=== PATIENT | male | born 1960 | race Caucasian/White ===

== ENCOUNTER 2016-07-18 15:02 | Inpatient (IN) | payer OTHER ==
[~2016-07-18] VITALS: Ht 170.2 cm; Wt 67.1 kg
[2016-07-18 15:20] VITALS: BP 131/75
--- NOTE | 2016-07-18 15:25 | NUR ---
PATIENT BIB AMBULANCE WITH C/O GENERALYZE WEAKNESS AND ABDOMINAL/ BACK PAIN, ASCITIS, PER PT.,PARACENTESIS DONE AT [facility] X[facility]. AGO.HX: ALCOHOLISM,ASCITIS; DENIES N/V/D; SKIN IS PINK/WARM/DRY; AAOX4 PLACE ON MONITOR; LUNGS CLEAR BL; HR EVEN AND REGULAR; PT DENIES ANY FEVER, CP, CP, OR COUGH AT THIS TIME; PATIENT STATES PAIN OF 10/10 AT THIS TIME; VSS; PATIENT POSITIONED FOR COMFORT; HOB ELEVATED; BEDRAILS UP X2; BED DOWN. ER MD MADE AWARE OF PT STATUS.
[2016-07-18] MEDS ORDERED: LORA-476 PO (15:36)
[2016-07-18] MEDS ORDERED: FURO-570 PO (15:36)
[2016-07-18 15:48] LABS: HEMATOCRIT 31.8 % (36-52); HEMOGLOBIN 9.8 g/dL (12.0-18.0); MEAN CORPUSCULAR HEMOGLOBIN 23 pg (27-31); MEAN CORPUSCULAR HGB CONC 31 g/dL (33-37); MEAN CORPUSCULAR VOLUME 74 fL (80-94); PLATELET COUNT (AUTO) 331 K/uL (140-450); RED BLOOD CELL COUNT(AUTO) 4.27 MIL/uL (4.20-6.10); RED CELL DISTRIBUTION WIDTH 20.2 % (11.6-13.7); WHITE BLOOD COUNT (AUTO) 6.9 K/uL (4.8-10.8)
[2016-07-18 15:50] LABS: ANION GAP 10.7 (8-16); CALCIUM 7.3 mg/dL (8.5-10.1); CARBON DIOXIDE 26.4 mmol/L (21-32); CREATININE 0.6 mg/dL (0.6-1.3); POTASSIUM 4.1 mmol/L (3.5-5.1)
[2016-07-18 15:55] LABS: INR 1.2 (0.8-1.2); PARTIAL THROMBOPLASTIN TIME 26.1 secs (22-35.6); PROTHROMBIN TIME 11.4 secs (10.8-13.4)
[2016-07-18] MEDS ORDERED: FUROSEMIDE 40 MG/4 ML VIAL IVP ONE (15:55)
[2016-07-18] MEDS ORDERED: MORPHINE SULFATE 4 MG/ML SYR IVP ONE ×2 (15:55→17:15)
[2016-07-18 15:56] LABS: ALBUMIN 2.1 g/dL (3.4-5.0); TOTAL BILIRUBIN 0.8 mg/dL (0.0-1.0); TOTAL PROTEIN, SERUM 6.7 g/dL (6.4-8.2)
[2016-07-18 16:17] LABS: BAND % (MANUAL) 1 % (0-8); EOSINOPHILS % (MANUAL) 2 % (0-4); HYPOCHROMASIA 1+; LYMPHOCYTES % (MANUAL) 16 % (20-46); METAMYELOCYTES % 1 % (0-0); MONOCYTES % (MANUAL) 7 % (5-12); NEUTROPHILS % (MANUAL) 73 (43-65); PLATELET ESTIMATE ADEQUATE
--- NOTE | 2016-07-18 17:01 | NUR ---
PT ASSISTED ON URINE SAMPLE, URINAL PROVIDED AT BEDSIDE EMPTIED 350 ML,
[2016-07-18] MEDS ORDERED: LACTULOSE 20 GM/30 ML UDC PO ONE (17:15)
[2016-07-18] MEDS ORDERED: ONDANSETRON 4 MG/2 ML VIAL IVP PRN (18:10)
--- NOTE | 2016-07-18 18:15 | NUR ---
URINE OUTPUT EMPTIED 750ML
[2016-07-18] MEDS ORDERED: SPIRONOLACTONE 25 MG TAB PO ONE (18:20)
--- NOTE | 2016-07-18 18:30 | NUR ---
Patient will be admitted to care of DR SERRA. Admited to TELE. Will go to room 109A. Belongings list completed. Report to BESSIE OTERO.
--- NOTE | 2016-07-18 18:40 | NUR ---
PT ARRIVED ON THE UNIT. HE WALKED FROM [facility] TO THE BED. PT IS SITTING AT SIDE OF BED. PT HAS SCRATCHES AND SCABS ON FACE. PT CLAIMS HE HAD A STROKE AND "WENT FACE FIRST" A COUPLE OF DAYS AGO. HE C/O OF NUMBNESS ON R HAND AND SOME WEAKNESS IN THE R LEG. PT HAS ASCITES. STOMACH IS VERY DISTENDED. PT CLAIMS HE HAD A PARACENTESIS 2 DAYS AGO AT [facility] HAD 9L DRAINED. PT IS ALERT ORIENTED X 4. V/S WITHIN NORMAL LIMITS. REQUESTED SOME BROTH AND JELLO.
[2016-07-18 18:45] VITALS: BP 128/92
[2016-07-18 18:46] LABS: MAGNESIUM 1.9 mg/dL (1.8-2.4); PHOSPHORUS 2.6 mg/dL (2.5-4.9)
[2016-07-18 19:05] LABS: FREE T4 (FREE THYROXINE) 1.27 ng/dL (0.76-1.46); THYROID STIMULATING HORMONE 1.33 uIU/mL (0.34-3.76)
--- NOTE | 2016-07-18 19:27 | NUR ---
ENDORSED PT TO THE AWNING FRAME MAKER NURSE. SHE WILL ADMIT PT. PT IS IN STABLE CONDITION.
--- NOTE | 2016-07-18 19:30 | NUR ---
RECEIVED REPORT ON PT FROM AM NURSE. AWAKE,ALERT AND ORIENTED X4. ON TELE MONITOR-ST. NO C/O ANY PAIN AT THIS TIME. WITH LARGE ABDOMEN, DX: ASCITES. WITH HL LT AC 320 ANS LT FA#20. BOTH PATENT. TO DO ADMITTING HISTORY/ ASSESSMENT. SPECIMEN FOR MRSA NARES COLLECTED. WILL SED TO LAB. CALL LIGHT PLACED WITHIN EASY REACH. INSTRUCTED TO HAVE BOTH SIDE RAILS UP . PLAN OF CARE DISCUSSED AND VERBALIZED UNDERSTANDING. WILL CONTINUE TO MONITOR.
[2016-07-18 20:30] LABS: APPEARANCE,URINE CLEAR (CLEAR); BILIRUBIN,URINE NEGATIVE (NEGATIVE); BLOOD, URINE NEGATIVE (NEGATIVE); COLOR,URINE YELLOW (YELLOW); LEUKOCYTE ESTERASE ,URINE NEGATIVE (NEGATIVE); NITRITE, URINE NEGATIVE (NEGATIVE); PROTEIN,URINE NEGATIVE (NEGATIVE); UGLUCOSE NEGATIVE (NEGATIVE); UROBILINOGEN,URINE 0.2 EU/dL (0.2 - 1)
[2016-07-18] MEDS ORDERED: CEFOTAXIME ONE (20:36)
[2016-07-18 20:38] LABS: BACTERIA,URINE RARE /HPF (None Seen); MUCUS,URINE 4+ /LPF (None Seen); RBC,URINE 0-3 /HPF (0-5); SQUAMOUS EPITHELIAL CELL,UR 0-3 /LPF (0-3 (FEW)); WBC,URINE 0-3 /HPF (0-5)
[2016-07-18 20:42] LABS: AMPHETAMINE, URINE POS. ng/ml (NEG <=1000); BARBITURATE, URINE NEG. ng/ml (NEG <=200); BENZODIAZEPINE, URINE NEG. ng/mL (NEG <=200); CANNABINOID, URINE NEG. ng/mL (NEG <=50); COCAINE, URINE NEG. ng/mL (NEG <=300); OPIATE, URINE NEG. ng/mL (NEG <=2000); PHENCYCLIDINE SCREEN,URINE NEG. ng/mL (NEG <=25)
--- NOTE | 2016-07-18 21:00 | NUR ---
PAGED DR. SERRA TO CLARIFY LASIX AND ALDACTONE ORDERS. DR. SALES WEIGHT LOSS PHYSICIAN. CALLED BACK. MADE AWARE .HE SAID HE'LL TAKE CARE.
[2016-07-18] MEDS: DEXTROSE 5% IV SCH (21:13)
[2016-07-18] MEDS: CEFOTAXIME IV SCH (21:13)
--- NOTE | 2016-07-18 21:30 | NUR ---
PT HAD SOME SANDWICH. TOLERATED WELL. NO VOMITING NOTED.
[2016-07-18 21:44] VITALS: BP 141/85
[2016-07-18] MEDS: MORPHINE SULFATE 2 MG/ML SYR IVP PRN (21:48)
[2016-07-19] VITALS: BP 140/80
--- NOTE | 2016-07-19 01:30 | NUR ---
STILL AWAKE. NO C/O ANY DISCOMFORT NOR PAIN NOTED. WILL CONTINUE TO MONITOR.
[2016-07-19 03:18] VITALS: BP 151/93
[2016-07-19] MEDS: MORPHINE SULFATE 2 MG/ML SYR IVP PRN ×2 (03:20→08:51)
--- NOTE | 2016-07-19 03:30 | NUR ---
SLEEPING WELL AT THIS TIME. NO S/S OF ANY DISCOMFORT NOTED.
--- NOTE | 2016-07-19 04:00 | NUR ---
APPLIED SCD MACHINE TO BLE.
[2016-07-19] MEDS ORDERED: CEFOTAXIME ONE (04:44)
[2016-07-19] MEDS: DEXTROSE 5% IV SCH ×3 (05:04→20:50)
[2016-07-19] MEDS: CEFOTAXIME IV SCH ×3 (05:04→20:50)
--- NOTE | 2016-07-19 06:30 | NUR ---
SLEEPING AT THIS TIME. NO S/S OF ANY DISCOMFORT NOTED.
[2016-07-19 06:50] LABS: HEMATOCRIT 30.4 % (36-52); HEMOGLOBIN 9.5 g/dL (12.0-18.0); MEAN CORPUSCULAR HEMOGLOBIN 23 pg (27-31); MEAN CORPUSCULAR HGB CONC 31 g/dL (33-37); MEAN CORPUSCULAR VOLUME 74 fL (80-94); PLATELET COUNT (AUTO) 286 K/uL (140-450); RED BLOOD CELL COUNT(AUTO) 4.09 MIL/uL (4.20-6.10); RED CELL DISTRIBUTION WIDTH 19.6 % (11.6-13.7); WHITE BLOOD COUNT (AUTO) 6.9 K/uL (4.8-10.8)
[2016-07-19 07:09] LABS: CALCIUM 7.2 mg/dL (8.5-10.1); CREATININE 0.8 mg/dL (0.6-1.3)
--- NOTE | 2016-07-19 07:20 | NUR ---
RECEIVED REPORT FROM NIGHT NURSE. PT IS AAOX4. ON ROOM AIR . LEFT FA 22G SALINE LOCK, LEFT AC 20G SALINE LOCK. SKIN INTACT OLD SCAB TO NOSE, ABDOMINAL DISTENTION, SCD NOTED.INITIAL ASSESSMENT COMPLETED. REVIEWED PLAN OF CARE WITH PT PT VERBALIZED UNDERSTANDING. ALL SAFETY/ FALL PRECAUTIONS MET. CALL LIGHT WITHIN REACH. WILL CONTINUE TO MONITOR.
--- NOTE | 2016-07-19 07:20 | NUR ---
ENDORSED PT IN STABLE CONDITION TO AM NURSE.
[2016-07-19 07:24] LABS: CHOL/HDL RATIO 3.4 (1-4.5); MAGNESIUM 1.6 mg/dL (1.8-2.4); PHOSPHORUS 3.3 mg/dL (2.5-4.9)
[2016-07-19 07:29] LABS: BAND % (MANUAL) 2 % (0-8); EOSINOPHILS % (MANUAL) 4 % (0-4); LYMPHOCYTES % (MANUAL) 8 % (20-46); MONOCYTES % (MANUAL) 11 % (5-12); NEUTROPHILS % (MANUAL) 75 (43-65); TARGET CELLS 1+
--- NOTE | 2016-07-19 07:55 | NUR ---
PATIENT HAS BEEN SCREENED AND CATEGORIZED MODERATE NUTRITION RISK. PATIENT WILL BE SEEN WITHIN 3-5 DAYS OF ADMISSION. 07/21/16-07/23/[address]
[2016-07-19 08:00] VITALS: BP 144/84
[2016-07-19] MEDS: SPIRONOLACTONE 50 MG TAB PO SCH ×2 (08:50→20:51)
[2016-07-19] MEDS: FUROSEMIDE 20 MG/2 ML VIAL IVP SCH ×2 (08:50→20:51)
[2016-07-19] MEDS: ASCORBIC ACID 500 MG TAB PO SCH ×2 (08:50→20:51)
[2016-07-19] MEDS: LACTOBACILLUS RHAMNOSUS GG 1 EACH CAP PO SCH (08:50)
[2016-07-19] MEDS: FERROUS SULFATE 325 MG TABEC PO SCH ×2 (08:51→17:34)
--- NOTE | 2016-07-19 08:53 | NUR ---
DUE MEDICATIONS GIVEN. PT TOLERATED WELL. PT C/O OF PAIN ALL OVER HIS BODY 10/10 MEDICATED PER MD ORDERS. CALL LIGHT WITHIN REACH. WILL CONTINUE TO MONITOR.
[2016-07-19] MEDS ORDERED: FUROSEMIDE 20 MG/2 ML VIAL IVP SCH (09:00)
[2016-07-19] MEDS ORDERED: LACTULOSE 20 GM/30 ML UDC PO SCH (09:00)
[2016-07-19] MEDS ORDERED: FUROSEMIDE 20 MG/2 ML VIAL IVP ONE (09:00)
[2016-07-19] MEDS ORDERED: SPIRONOLACTONE 50 MG TAB PO SCH (09:00)
--- NOTE | 2016-07-19 11:46 | NUR ---
CM NOTE PER NOTE TELLER MAIKOL EXT [id number], REVIEWS SHOULD BE SENT TO [facility] FAX# [phone] AND TO [facility] FAX# [phone]. INITIAL REVIEW SENT TO [facility] FAX# [phone] PH# [phone] EXT 2013 AND TO [facility] FAX# [phone] PH# [phone].
[2016-07-19] MEDS ORDERED: MAGNESIUM OXIDE 400 MG TAB PO SCH ×2 (11:52→19:25)
[2016-07-19 12:00] VITALS: BP 138/68
--- NOTE | 2016-07-19 12:21 | NUR ---
DUE MEDICATIONS GIVEN. PT TOLERATED WELL. PT CURRENTLY IN BED EATING LUNCH. DR DEAN IN TO SEE PT. CALL LIGHT WITHIN REACH. WILL CONTINUE TO MONITOR.
[2016-07-19] MEDS ORDERED: LORazepam 1 MG TAB PO PRN (13:25)
[2016-07-19] MEDS ORDERED: LORazepam 2 MG/ML VIAL IVP PRN (13:25)
[2016-07-19] MEDS: MORPHINE SULFATE 4 MG/ML SYR IVP PRN ×2 (13:34→18:48)
--- NOTE | 2016-07-19 14:35 | NUR ---
CHCEKED IN ON PT. PT CURRENTLY SLEEPING. CALL LIGHT WITHIN REACH. WILL CONTINUE TO MONITOR.
[2016-07-19 16:00] VITALS: BP 135/86
--- NOTE | 2016-07-19 16:39 | NUR ---
PT CURRENTLY SLEEPING. CALL LIGHT WITHIN REACH. WILL CONTINUE TO MONITOR.
--- NOTE | 2016-07-19 17:35 | NUR ---
DUE MEDICATION GIVEN. PT CURRENTLY ASLEEP, AWAKEN TO NAME. ALL NEEDS MET. CALL LIGHT WITHIN REACH. WILL CONTINUE TO MONITOR.
--- NOTE | 2016-07-19 18:40 | NUR ---
PT C/O PAIN 02/05, WILL MEDICATE PER MD ORDERS. ALL NEEDS MET. CALL LIGHT WITHIN REACH. WILL CONTINUE TO MONITOR.
[2016-07-19] MEDS ORDERED: DEXTROSE 50% 50 ML SYR IVP PRN (19:25)
--- NOTE | 2016-07-19 19:25 | NUR ---
ENDORSED PLAN OF CARE TO NIGHT NURSE. PT IN STABLE CONDITION.
--- NOTE | 2016-07-19 19:30 | NUR ---
RECEIVED PT IN STABLE CONDITION TO AM NURSE. AWAKE,ALERT AND ORIENTED X4. ON TELE MONITOR -ST. BEDREST. WITH NO C/O ANY PAIN AT THIS TIME. HAS HL ON LT FA #20 AND LT AC #20 BOTH CLEAR AND PATENT. ABDOMEN VERY DISTENDED, HAS ASCITES. PLAN OF CARE DISCUSSED AND VERBALIZED UNDERSTANDING. BLE SCD MACHINE OFF AT THIS TIME, REFUSED. CALL LIGHT AND URINAL PLACED WITHIN EASY REACH. WILL CONTINUE TO MONITOR.
[2016-07-19 20:00] VITALS: BP 124/93
[2016-07-19] MEDS: BLOOD GLUCOSE MONITORING 1 DEV DEV FS SCH (22:11)
[2016-07-19] MEDS: INSULIN LISPRO SLIDING SCALE 100 UNITS/ML VIAL SUBQ PRN (22:11)
--- NOTE | 2016-07-19 22:40 | NUR ---
MAGNESIUM LEVEL 1.6, ANOTHER DOSE OF MAGNESIUM 400 MG PO GIVEN ORDERED.
[2016-07-20 00:15] VITALS: BP 123/73
[2016-07-20] MEDS: MORPHINE SULFATE 4 MG/ML SYR IVP PRN ×4 (00:35→21:32)
--- NOTE | 2016-07-20 02:00 | NUR ---
SLEEPING WELL AT THIS TIME. NO S/S OF ANY DISCOMFORT NOR PAIN NOTED.
[2016-07-20 04:00] VITALS: BP 123/76
--- NOTE | 2016-07-20 04:00 | NUR ---
PT STILL REFUSED TO HAVE SCD TO BLE .
[2016-07-20] MEDS: CEFOTAXIME IV SCH ×3 (04:32→20:48)
[2016-07-20] MEDS: DEXTROSE 5% IV SCH ×3 (04:32→20:48)
--- NOTE | 2016-07-20 05:50 | NUR ---
SLEEPING AT THIS TIME. NO S/S OF ANY DISCOMFORT NOTED.
[2016-07-20] MEDS: BLOOD GLUCOSE MONITORING 1 DEV DEV FS SCH ×4 (06:21→21:39)
--- NOTE | 2016-07-20 06:21 | NUR ---
BLOOD SUGAR WAS CHECKED RESULT 131. NO INSULIN NEEDED.
[2016-07-20 06:42] LABS: ANION GAP 8.5 (8-16); CALCIUM 7.7 mg/dL (8.5-10.1); CARBON DIOXIDE 28.2 mmol/L (21-32); CREATININE 0.7 mg/dL (0.6-1.3); POTASSIUM 3.7 mmol/L (3.5-5.1)
[2016-07-20 06:44] LABS: MAGNESIUM 1.8 mg/dL (1.8-2.4); PHOSPHORUS 3.4 mg/dL (2.5-4.9)
--- NOTE | 2016-07-20 07:00 | NUR ---
RECEIVED REPORT FROM NIGHT NURSE. PT IS AAOX4. ON ROOM AIR . LEFT FA 22G SALINE LOCK, RIGHT FA 22G, SKIN INTACT OLD SCAB TO NOSE, ABDOMINAL DISTENTION, SCD NOTED.INITIAL ASSESSMENT COMPLETED. REVIEWED PLAN OF CARE WITH PT PT VERBALIZED UNDERSTANDING. ALL SAFETY/ FALL PRECAUTIONS MET. CALL LIGHT WITHIN REACH. WILL CONTINUE TO MONITOR.
--- NOTE | 2016-07-20 07:00 | NUR ---
ENDORSED PT IN STABLE CONDITION TO AM NURSE.
[2016-07-20 07:04] LABS: HEMATOCRIT 30.9 % (36-52); HEMOGLOBIN 9.5 g/dL (12.0-18.0); RED BLOOD CELL COUNT(AUTO) 4.13 MIL/uL (4.20-6.10); WHITE BLOOD COUNT (AUTO) 6.7 K/uL (4.8-10.8)
[2016-07-20 07:05] LABS: MEAN CORPUSCULAR HEMOGLOBIN 23 pg (27-31); MEAN CORPUSCULAR HGB CONC 31 g/dL (33-37); MEAN CORPUSCULAR VOLUME 75 fL (80-94); PLATELET COUNT (AUTO) 255 K/uL (140-450)
[2016-07-20 08:03] VITALS: BP 142/96
[2016-07-20 08:23] LABS: BAND % (MANUAL) 1 % (0-8); BASOPHILS % (MANUAL) 0 % (0-2); EOSINOPHILS % (MANUAL) 7 % (0-4); LYMPHOCYTES % (MANUAL) 16 % (20-46); MONOCYTES % (MANUAL) 5 % (5-12); NEUTROPHILS % (MANUAL) 71 (43-65)
[2016-07-20 08:24] LABS: ANISOCYTOSIS 1+; HYPOCHROMASIA 1+; PLATELET ESTIMATE ADEQUATE; POIKILOCYTOSIS 1+
[2016-07-20] MEDS: FOLIC ACID 1 MG TAB PO SCH (08:27)
[2016-07-20] MEDS: SPIRONOLACTONE 50 MG TAB PO SCH ×2 (08:27→20:35)
[2016-07-20] MEDS: FERROUS SULFATE 325 MG TABEC PO SCH ×2 (08:27→16:50)
[2016-07-20] MEDS: MULTIVITAMIN 1 TAB PO SCH (08:27)
[2016-07-20] MEDS: LACTULOSE 20 GM/30 ML UDC PO SCH ×3 (08:27→16:50)
[2016-07-20] MEDS: ASCORBIC ACID 500 MG TAB PO SCH ×2 (08:27→20:35)
[2016-07-20] MEDS: THIAMINE 200 MG/2 ML VIAL IM SCH (08:28)
[2016-07-20] MEDS: FUROSEMIDE 20 MG/2 ML VIAL IVP SCH ×2 (08:28→20:48)
[2016-07-20] MEDS: LACTOBACILLUS RHAMNOSUS GG 1 EACH CAP PO SCH (08:29)
--- NOTE | 2016-07-20 08:38 | NUR ---
DUE MEDICATIONS GIVEN.PT TOLERATED WELL. PT CURRENTLY AWAKE WATCHING TV. WILL CONTINUE TO MONITOR.
--- NOTE | 2016-07-20 10:34 | NUR ---
PT CURRENTLY SLEEPING. NO S/S OF DISTRESS OR DISCOMFORT. CALL LIGHT WITHIN REACH.
--- NOTE | 2016-07-20 10:34 | NUR ---
CM NOTES CONCURRENT REVIEW SENT TO [employer] FAX# [phone] PH# [phone] EXT 2013 AND TO [facility] FAX# [phone] PH# [phone].
[2016-07-20 12:00] VITALS: BP 120/97
[2016-07-20] MEDS: INSULIN LISPRO SLIDING SCALE 100 UNITS/ML VIAL SUBQ PRN ×3 (12:20→20:43)
--- NOTE | 2016-07-20 12:51 | NUR ---
DUE MEDICATION GIVEN. PT TOLERATED WELL. PT CURRENTLY EATING LUNCH. CALL LIGHT WITHIN REACH. WILL CONTINUE TO MONITOR.
--- NOTE | 2016-07-20 14:44 | NUR ---
PT CURRENTLY SLEEPING. CALL LIGHT WITHIN REACH. WILL CONTINUE TO MONITOR.
[2016-07-20 16:00] VITALS: BP 118/78
--- NOTE | 2016-07-20 16:51 | NUR ---
DUE MEDICATIONS GIVEN. PT CURRENTLY ASLEEP BUT AWAKENS TO NAME. ALL NEEDS MET. CALL LIGHT WITHIN REACH. WILL CONTINUE TO MONITOR.
--- NOTE | 2016-07-20 18:41 | NUR ---
ATIVAN GIVEN PER MD ORDERS, FOR PROCEDURE. PT PULSE OF 98% ON ROOM AIR. BP 112/75, HR 120.
--- NOTE | 2016-07-20 19:10 | NUR ---
ENDORSED PLAN OF CARE TO NIGHT NURSE, PT CURRENTLY GETTING PARACENTESIS DONE, DR DEAN IN ROOM WITH PT.
[2016-07-20 20:00] VITALS: BP 118/75
--- NOTE | 2016-07-20 20:00 | NUR ---
Patient's Plan of Care was discussed and reviewed with WEB CONTENT DEVELOPER: OTIS RODRIGUEZ.
[2016-07-21 00:25] VITALS: BP 124/80
--- NOTE | 2016-07-21 01:01 | NUR ---
PT SLEEPING IN NO DISTRESS.CALL LIGHT WITHIN REACH WILL CONTINUE TO MONITOR.
[2016-07-21 01:45] LABS: APPEARANCE,SPUN,BODY FLUID CLEAR (CLEAR); APPEARANCE,UNSPUN,BODY FLUID SLIGHTLY HAZY (CLEAR); COLOR,BODY FLUID LT YELLOW (LT YELLOW); SPECIMENTYPE,BODY FLUID PERITONEAL
[2016-07-21 01:46] LABS: ALBUMIN,BODY FLUID 0.2 g/dL; MONONUCLEAR, BODY FLUID 80 %; POLYNUCLEAR, BODY FLUID 20 %; PROTEIN, BODY FLUID 0.9 g/dL; RBC, BODY FLUID 55 /cu. mm.; TOTAL VOLUME,BODY FLUID 7950 mL; WBC, BODY FLUID 65 /cu. mm.
--- NOTE | 2016-07-21 03:33 | NUR ---
PT STABLE RESTING IN BED REFUSED TO HAVE SCD'S IN PLACE.NEEDS MET.WILL CONTINUE TO MONITOR.
[2016-07-21] MEDS: MORPHINE SULFATE 4 MG/ML SYR IVP PRN ×3 (03:59→20:57)
[2016-07-21 04:00] VITALS: BP 125/75
--- NOTE | 2016-07-21 04:00 | NUR ---
PT WANTS TO EAT WAS GIVEN HALF A TUNA SANDWHICH AND JUICE.WILL CONTINUE TO MONITOR.
[2016-07-21] MEDS: CEFOTAXIME IV SCH ×3 (04:01→20:57)
[2016-07-21] MEDS: DEXTROSE 5% IV SCH ×3 (04:01→20:57)
[2016-07-21] MEDS: BLOOD GLUCOSE MONITORING 1 DEV DEV FS SCH ×4 (06:12→21:31)
[2016-07-21] MEDS: INSULIN LISPRO SLIDING SCALE 100 UNITS/ML VIAL SUBQ PRN ×4 (06:16→21:33)
[2016-07-21 06:19] LABS: HEMATOCRIT 31.3 % (36-52); HEMOGLOBIN 9.7 g/dL (12.0-18.0); MEAN CORPUSCULAR HEMOGLOBIN 23 pg (27-31); MEAN CORPUSCULAR HGB CONC 31 g/dL (33-37); MEAN CORPUSCULAR VOLUME 74 fL (80-94); PLATELET COUNT (AUTO) 266 K/uL (140-450); RED BLOOD CELL COUNT(AUTO) 4.23 MIL/uL (4.20-6.10); RED CELL DISTRIBUTION WIDTH 19.5 % (11.6-13.7); WHITE BLOOD COUNT (AUTO) 8.8 K/uL (4.8-10.8)
[2016-07-21 06:24] LABS: ANION GAP 7.3 (8-16); CALCIUM 7.4 mg/dL (8.5-10.1); CARBON DIOXIDE 29.7 mmol/L (21-32); CREATININE 0.8 mg/dL (0.6-1.3)
[2016-07-21 06:28] LABS: MAGNESIUM 1.7 mg/dL (1.8-2.4); PHOSPHORUS 3.3 mg/dL (2.5-4.9)
--- NOTE | 2016-07-21 06:39 | NUR ---
PATIENT IS CURRENTLY EATING SITTING AT THE EDGE OF THE BED.
--- NOTE | 2016-07-21 07:07 | NUR ---
PT STABLE RESTING IN BED REPORT ENDORSED TO BESSIE MARSH HE WILL RESUME CARE OF THE PATIENT.
--- NOTE | 2016-07-21 07:07 | NUR ---
ASSUMED CONTINUITY OF CARE. NO SIGNS AND SYMPTOMS OF ACUTE DISTRESS NOTED. INITIAL ASSESSMENT DONE. KEEP COMFORTABLE ON BED. EXPLAINED DIAGNOSIS, PLAN OF CARE, PAIN MANAGEMENT TEACHING, USE OF CALL LIGHT/BED/TV/BATHROOM. VERBALIZED UNDERSTANDING. FALL PRECAUTION APPLIED. CALL LIGHT WITHIN REACH.
[2016-07-21 07:26] LABS: ANISOCYTOSIS 1+; BAND % (MANUAL) 1 % (0-8); BASOPHILS % (MANUAL) 0 % (0-2); EOSINOPHILS % (MANUAL) 1 % (0-4); LYMPHOCYTES % (MANUAL) 9 % (20-46); MONOCYTES % (MANUAL) 2 % (5-12); NEUTROPHILS % (MANUAL) 87 (43-65); PLATELET ESTIMATE ADEQUATE
--- NOTE | 2016-07-21 07:30 | NUR ---
Patient's Plan of Care was discussed and reviewed with PUMP TECHNICIAN: COLT
[2016-07-21 08:00] VITALS: BP 129/75
[2016-07-21] MEDS: LACTOBACILLUS RHAMNOSUS GG 1 EACH CAP PO SCH (08:29)
[2016-07-21] MEDS: FERROUS SULFATE 325 MG TABEC PO SCH ×2 (08:29→16:29)
[2016-07-21] MEDS: MULTIVITAMIN 1 TAB PO SCH (08:29)
[2016-07-21] MEDS: ASCORBIC ACID 500 MG TAB PO SCH ×2 (08:29→21:26)
[2016-07-21] MEDS: LACTULOSE 20 GM/30 ML UDC PO SCH ×4 (08:30→16:29)
[2016-07-21] MEDS: SPIRONOLACTONE 50 MG TAB PO SCH ×2 (08:30→21:26)
[2016-07-21] MEDS: FOLIC ACID 1 MG TAB PO SCH (08:30)
[2016-07-21] MEDS: THIAMINE 200 MG/2 ML VIAL IM SCH (08:31)
[2016-07-21] MEDS: FUROSEMIDE 20 MG/2 ML VIAL IVP SCH ×2 (08:46→21:00)
[2016-07-21] MEDS ORDERED: LACTULOSE 20 GM/30 ML UDC PO SCH (09:30)
[2016-07-21] MEDS: LORazepam 1 MG TAB PO SCH ×3 (09:35→21:26)
[2016-07-21] MEDS: RIFAXIMIN 550 MG TAB PO SCH ×2 (09:35→21:26)
--- NOTE | 2016-07-21 11:24 | NUR ---
SEEN WATCHING TV AT THIS TIME. NO DISCOMFORT NOTED. CALL LIGHT WITHIN REACH.
[2016-07-21 12:00] VITALS: BP 113/71
--- NOTE | 2016-07-21 13:00 | NUR ---
PT'S R FA IV INFILTRATED. STARTED A NEW ONE ON L HAND 22G. FLUSHING WELL. PT TOLERATED WELL.
[2016-07-21] MEDS: MAGNESIUM OXIDE 400 MG TAB PO SCH ×2 (14:15→21:00)
--- NOTE | 2016-07-21 15:08 | NUR ---
SEEN ASLEEP. NO DIFFICULTY BREATHING NOTICED. KEEP FREE FROM FALL.
[2016-07-21 16:00] VITALS: BP 116/78
--- NOTE | 2016-07-21 19:20 | NUR ---
BEDSIDE REPORT GIVEN TO OTIS PICHARDO. IN STABLE CONDITION.
--- NOTE | 2016-07-21 19:22 | NUR ---
PATIENT IS CURRENTLY RESTING IN BED,PT DENIES ANY PAIN OR DISCOMFORT AT THIS TIME.FALL AND SAFETY PRECAUTIONS IMPLEMENTED.CALL LIGHT WITHIN REACH.PATIENT'S ABDOMEN CONTINUES TO BE DISTENDED AND HARD.VS TAKEN CURRENTLY WITHIN NORMAL LIMITS PATIENT REMAINS AFEBRILE.WILL CONTINUE TO OBSERVE.
--- NOTE | 2016-07-21 19:55 | NUR ---
PT SLEEPING REFUSES TO WEAR SCDS EDUCATION GIVEN ON THE IMPORTANCE OF WEARING SCD'S FOR DVT PROPHALAXIS BUT PATIENT STILL REFUSES.
[2016-07-21 20:00] VITALS: BP 111/59
--- NOTE | 2016-07-21 20:00 | NUR ---
Patient's Plan of Care was discussed and reviewed with PLASTERING SUPERVISOR: OTIS RODRIGUEZ
--- NOTE | 2016-07-21 20:57 | NUR ---
PT RECEIVED HIS ANTIBIOTIC BESSIE MORTENSEN PT RESTING IN BED AT THIS TIME.
[2016-07-22] VITALS: BP 101/74
--- NOTE | 2016-07-22 00:10 | NUR ---
PATIENT IS CURRENTLY AWAKE ALERT ORIENTED RESTING IN BED ASSISTED TO THE BATHROOM AND BACK TO BED,NEEDS CONTINUE TO BE MET,AND CALL LIGHT WITHIN REACH FALL PREC CONTINUE TO BE IMPLEMENTED AND BED ALARM KEPT ON. WILL CONTINUE TO MONITOR.
[2016-07-22] MEDS: MORPHINE SULFATE 4 MG/ML SYR IVP PRN ×2 (03:01→08:28)
--- NOTE | 2016-07-22 03:21 | NUR ---
PT IS SLEEPING IN BED AT THIS TIME.BED ALARM ON FOR SAFETY WILL CONTINUE TO MONITOR.
[2016-07-22] MEDS: LORazepam 1 MG TAB PO SCH (04:38)
[2016-07-22 04:40] VITALS: BP 114/71
[2016-07-22] MEDS: CEFOTAXIME IV SCH (04:54)
[2016-07-22] MEDS: DEXTROSE 5% IV SCH (04:54)
[2016-07-22 06:01] LABS: HEMATOCRIT 30.4 % (36-52); HEMOGLOBIN 9.6 g/dL (12.0-18.0); MEAN CORPUSCULAR HEMOGLOBIN 23 pg (27-31); MEAN CORPUSCULAR HGB CONC 32 g/dL (33-37); MEAN CORPUSCULAR VOLUME 74 fL (80-94); PLATELET COUNT (AUTO) 262 K/uL (140-450); RED BLOOD CELL COUNT(AUTO) 4.11 MIL/uL (4.20-6.10); RED CELL DISTRIBUTION WIDTH 19.6 % (11.6-13.7); WHITE BLOOD COUNT (AUTO) 9.7 K/uL (4.8-10.8)
[2016-07-22 06:18] LABS: MAGNESIUM 1.9 mg/dL (1.8-2.4); PHOSPHORUS 3.1 mg/dL (2.5-4.9)
[2016-07-22 06:19] LABS: CALCIUM 7.4 mg/dL (8.5-10.1); CARBON DIOXIDE 29.2 mmol/L (21-32); CREATININE 0.7 mg/dL (0.6-1.3); POTASSIUM 4.2 mmol/L (3.5-5.1)
[2016-07-22] MEDS: BLOOD GLUCOSE MONITORING 1 DEV DEV FS SCH ×2 (06:34→12:05)
--- NOTE | 2016-07-22 06:34 | NUR ---
PT STABLE RESTING IN BED SLEEPING.CALL LIGHT WITHIN REACH WILL CONTINUE TO MONITOR.
[2016-07-22 06:53] LABS: BAND % (MANUAL) 1 % (0-8); EOSINOPHILS % (MANUAL) 2 % (0-4); HYPOCHROMASIA 1+; LYMPHOCYTES % (MANUAL) 9 % (20-46); MONOCYTES % (MANUAL) 9 % (5-12); NEUTROPHILS % (MANUAL) 79 (43-65); TARGET CELLS 1+
--- NOTE | 2016-07-22 07:23 | NUR ---
PT STABLE REPORT ENDORSED TO BESSIE BAEZA.
--- NOTE | 2016-07-22 07:24 | NUR ---
RECEIVED PT IN BED, ALERT, AWAKE, ORIENTEDX4. BREATHING EVEN AND UNLABORED. DENIES ANY PAIN OR DISCOMFORT AT THIS TIME. ABDOMINAL DISTENTION NOTED. AMBULATORY. SAFETY PRECAUTION IN PLACE. CALL LIGHT WITHIN REACH.
[2016-07-22 08:00] VITALS: BP 111/75
[2016-07-22] MEDS: MULTIVITAMIN 1 TAB PO SCH (08:32)
[2016-07-22] MEDS: FERROUS SULFATE 325 MG TABEC PO SCH (08:33)
[2016-07-22] MEDS: LACTOBACILLUS RHAMNOSUS GG 1 EACH CAP PO SCH (08:33)
[2016-07-22] MEDS: MAGNESIUM OXIDE 400 MG TAB PO SCH (08:33)
[2016-07-22] MEDS: FOLIC ACID 1 MG TAB PO SCH (08:33)
[2016-07-22] MEDS: THIAMINE 200 MG/2 ML VIAL IM SCH (08:36)
[2016-07-22] MEDS: LACTULOSE 20 GM/30 ML UDC PO SCH (08:38)
[2016-07-22] MEDS: ASCORBIC ACID 500 MG TAB PO SCH (09:00)
--- NOTE | 2016-07-22 09:00 | NUR ---
BLOOD PRESSURE MEDS NOT GIVEN DUE TO BP ON LOW SIDE. AND MORPHINE 4MG GIVEN FOR COMPLAINT OF ABDOMINAL PAIN 01/06. Addendum: 07/22/16 at 1031 by Maria Victoria Hummel RN *LASIX AND *SPIRONOLACTONE .
--- NOTE | 2016-07-22 10:28 | NUR ---
BLOOD PRESSURE RECHECKED 118/70 PULSE RATE 118. WILL GIVE DUE LASIX AND SPIRONOLACTONE.
[2016-07-22] MEDS: FUROSEMIDE 20 MG/2 ML VIAL IVP SCH (10:33)
[2016-07-22] MEDS: SPIRONOLACTONE 50 MG TAB PO SCH (10:34)
[2016-07-22] MEDS: RIFAXIMIN 550 MG TAB PO SCH (10:35)
[2016-07-22 11:28] VITALS: BP 95/53
[2016-07-22] MEDS ORDERED: CEP30L PO (11:31)
[2016-07-22] MEDS ORDERED: SPIR50TA PO (11:31)
[2016-07-22] MEDS ORDERED: RIFA550T2 PO (11:31)
[2016-07-22] MEDS ORDERED: METF500T PO (11:32)
[2016-07-22] MEDS ORDERED: OXYC5TAB92 PO (11:39)
[2016-07-22 12:00] VITALS: BP 95/53
[2016-07-22] MEDS: INSULIN LISPRO SLIDING SCALE 100 UNITS/ML VIAL SUBQ PRN (12:22)
--- NOTE | 2016-07-22 13:45 | NUR ---
PT STATED HE DOES NOT HAVE ENOUGH MONEY FOR A BUS RIDE. (1)BUS PASS GIVEN TO PT. PT STATED HE WILL GO TO [facility] THE [facility] [place].
--- NOTE | 2016-07-22 13:50 | NUR ---
DISCHARGE INSTRUCTIONS AND PRESCRIPTION GIVEN. PT VERBALIZED UNDERSTANDING. IV REMOVED, CANNULA INTACT. TELEMONITOR REMOVED. PT ON STABLE CONDITION, DENIES ANY PAIN OR DISCOMFORT AT THIS TIME. WHEELED OUTSIDE PER INFUSION NURSE ASSIST.
== END 2016-07-22 13:50 | disposition home or self-care (01) | DRG 441 ==
LOC: MED 15:02 → MTU 18:13
PROVIDERS: ADMIT Family Medicine; ATTEND Family Medicine
PROC: 0W9G30Z Drainage of Peritoneal Cavity with Drainage Device, Percutaneous Approach (ICD-10-PCS; principal; 2016-07-20)
DX: K72.90 Hepatic failure, unspecified without coma (principal); E43 Unspecified severe protein-calorie malnutrition; D68.59 Other primary thrombophilia; E87.1 Hypo-osmolality and hyponatremia; I49.9 Cardiac arrhythmia, unspecified; K70.31 Alcoholic cirrhosis of liver with ascites; I10 Essential (primary) hypertension; G89.29 Other chronic pain; E83.42 Hypomagnesemia; E11.65 Type 2 diabetes mellitus with hyperglycemia; D50.9 Iron deficiency anemia, unspecified; K80.20 Calculus of gallbladder without cholecystitis without obstruction; M54.5 Low back pain; F15.10 Other stimulant abuse, uncomplicated; F10.10 Alcohol abuse, uncomplicated; F17.210 Nicotine dependence, cigarettes, uncomplicated; Z79.899 Other long term (current) drug therapy; Z82.3 Family history of stroke; Z82.49 Family history of ischemic heart disease and other diseases of the circulatory system; Z68.23 Body mass index [BMI] 23.0-23.9, adult
CPT/HCPCS: 36415; 71010; 76700; 76705; 80048; 80053; 80305; 81001; 82140; 82150; 82945; 82948; 83036; 83605; 83690; 83735; 83880; 84100; 84439; 84443; 85025; 85610; 85730; 87081; 87205; 93005; 96374; 96375; 97110; 99285; G0482; J0698; J1940; J2060; J2270; J3411; J7030; J7060; Q0092

== ENCOUNTER 2016-07-24 13:34 | Emergency (ER) | payer OTHER ==
[~2016-07-24] VITALS: Ht 170.2 cm; Wt 65.8 kg
[~2016-07-24 13:34] MED LIST: CEP30L PO; FURO-570 PO; LORA-476 PO; METF500T PO; OXYC5TAB92 PO; RIFA550T2 PO; SPIR50TA PO
--- NOTE | 2016-07-24 13:34 | NUR ---
Patient BIBA BLS, transferred to bed 4. RN evaluating patient at bedside.
[2016-07-24 13:35] VITALS: BP 117/72
--- NOTE | 2016-07-24 13:36 | NUR ---
PATIENT BIBA FOR EVALUATION OF ABDOMINAL PAIN AND DISTENTION . PT STATES HE WAS HOSPITALIZED RECENTLY FOR ASCITES, AND HAS SINCE FILLED UP W/FLUID. HX CIRRHOSIS, ASCITES . DENIES N/V/D; SKIN IS PINK/WARM/DRY; AAOX4 WITH EVEN AND STEADY GAIT; LUNGS CLEAR BL; HR EVEN AND REGULAR; PT DENIES ANY CP OR COUGH AT THIS TIME; PATIENT STATES PAIN OF 10/10 AT THIS TIME; VSS; PATIENT POSITIONED FOR COMFORT; HOB ELEVATED; BEDRAILS UP X2; BED DOWN. ER MD MADE AWARE OF PT STATUS.
--- NOTE | 2016-07-24 13:36 | NUR ---
PT BIBA TO BED 4.
--- NOTE | 2016-07-24 14:39 | NUR ---
PATIENT SLEEPING IN BED, SIDE RAILS UP X2, NO VISABLE DISTRESS AT THIS TIME.
[2016-07-24] MEDS ORDERED: KETOROLAC 60 MG/2 ML VIAL IM ONE (15:55)
--- NOTE | 2016-07-24 16:32 | NUR ---
PATIENT SITTING UP IN BED SIDE RAILS UP X 2, EATING SOFT DIET, NO VISABLE DISTRESS AT THIS TIME.
--- NOTE | 2016-07-24 17:00 | NUR ---
Patient discharged with v/s stable. Written and verbal after care instructions given and explained. Patient verbalized understanding. Ambulatory with steady gait. All questions addressed prior to discharge. Advised to follow up with PMD.
[2016-07-24 17:01] VITALS: BP 113/63
== END 2016-07-24 17:00 | disposition home or self-care (01) ==
LOC: MED 13:34
DX: R18.8 Other ascites (principal); F17.200 Nicotine dependence, unspecified, uncomplicated; Z79.899 Other long term (current) drug therapy
CPT/HCPCS: 96372; 99283; J1885

== ENCOUNTER 2016-08-22 02:57 | Emergency (ER) | payer OTHER ==
[~2016-08-22] VITALS: Ht 170.2 cm; Wt 63.5 kg
--- NOTE | 2016-08-22 02:59 | NUR ---
BIBA TO ER BED 6
--- NOTE | 2016-08-22 03:00 | NUR ---
VAMSI C/O BODYACHES. HE WAS JUST D/C FROM [facility]. PATIENT ALERT AWAKE ORIENTED, AMBULATORY. PT STATES HE HAS HX OF ASCITES AND CIRRHOSIS OF THE LIVER 02/05 PAIN
[2016-08-22 03:04] VITALS: BP 112/78
[2016-08-22] MEDS ORDERED: SODIUM CHLORIDE FLUSH 10 ML SYR IVF ONE (03:05)
--- NOTE | 2016-08-22 03:05 | NUR ---
Patient being evaluated by physician at bedside.
[2016-08-22 03:21] LABS: HEMATOCRIT 34.4 % (36-52); HEMOGLOBIN 10.8 g/dL (12.0-18.0); MEAN CORPUSCULAR HEMOGLOBIN 24 pg (27-31); MEAN CORPUSCULAR HGB CONC 31 g/dL (33-37); MEAN CORPUSCULAR VOLUME 77 fL (80-94); PLATELET COUNT (AUTO) 320 K/uL (140-450); RED CELL DISTRIBUTION WIDTH 21.9 % (11.6-13.7); WHITE BLOOD COUNT (AUTO) 9.4 K/uL (4.8-10.8)
[2016-08-22 03:39] LABS: ANISOCYTOSIS 1+; BAND % (MANUAL) 9 % (0-8); EOSINOPHILS % (MANUAL) 2 % (0-4); HYPOCHROMASIA 1+; LYMPHOCYTES % (MANUAL) 8 % (20-46); MONOCYTES % (MANUAL) 4 % (5-12); NEUTROPHILS % (MANUAL) 77 (43-65)
--- NOTE | 2016-08-22 03:42 | NUR ---
Ultrasound at bedside.
[2016-08-22 03:44] LABS: ALBUMIN 2.4 g/dL (3.4-5.0); CALCIUM 8.5 mg/dL (8.5-10.1); CARBON DIOXIDE 31.8 mmol/L (21-32); CREATININE 0.8 mg/dL (0.6-1.3); POTASSIUM 3.8 mmol/L (3.5-5.1); TOTAL BILIRUBIN 0.6 mg/dL (0.0-1.0); TOTAL PROTEIN, SERUM 7.5 g/dL (6.4-8.2)
[2016-08-22 03:50] LABS: INR 1.3 (0.8-1.2); PARTIAL THROMBOPLASTIN TIME 26.1 secs (22-35.6); PROTHROMBIN TIME 12.3 secs (10.8-13.4)
--- NOTE | 2016-08-22 06:20 | NUR ---
IV removed, catheter intact and site benign. Applied folded 4x4 gauze and tape to stop bleeding.
[2016-08-22 06:28] VITALS: BP 119/76
== END 2016-08-22 06:28 | disposition home or self-care (01) ==
LOC: MED 02:57
DX: G62.9 Polyneuropathy, unspecified (principal); R18.8 Other ascites; K76.9 Liver disease, unspecified
CPT/HCPCS: 36415; 76700; 80053; 82140; 85025; 85610; 85730; 99285; Q0092

== ENCOUNTER 2016-09-06 20:34 | Emergency (ER) | payer OTHER ==
[~2016-09-06] VITALS: Ht 170.2 cm; Wt 63.5 kg
[2016-09-06 21:12] VITALS: BP 104/71
--- NOTE | 2016-09-06 23:51 | NUR ---
PT TAKEN TO OF3
--- NOTE | 2016-09-07 00:03 | NUR ---
56Y M BIBA C/O BODYACHES,FOR 2 YEARS.PATIENT ALERT AWAKE ORIENTED. PT STATES HE HAD A SEIZURE YESTERDAY WHILE AT [facility]. TONGUE IS INTACT FREE FROM INJURY. PT ALSO STATES HE HAS DIFIFCULTY SPEAKING, BUT ON ASSESSMENT, PT ANSWER ALL ASSESSMENT CLEARLY. PT ALSO C/O SCIATIC PAIN RADIATES TO THE LEFT FOOT 10/10 PAIN. PT DENIES ANY N/V/D, OR CP AT THE MOMENT.
--- NOTE | 2016-09-07 00:29 | NUR ---
Dr. Shea evaluating patient
[2016-09-07] MEDS ORDERED: HYDROcodone/APAP 5/325 MG 1 TAB TAB PO ONE (00:35)
--- NOTE | 2016-09-07 01:03 | NUR ---
Patient discharged with v/s stable. Written and verbal after care instructions given and explained. Patient alert, oriented and verbalized understanding of instructions. Wheel Chair Assisted. All questions addressed prior to discharge. ID band removed. Patient advised to follow up with PMD. Rx of ROBAXIN 500MG given. Patient educated on indication of medication including possible reaction and side effects. Opportunity to ask questions provided and answered.
[2016-09-07 01:04] VITALS: BP 110/81
== END 2016-09-07 01:03 | disposition home or self-care (01) ==
LOC: MED 20:34
DX: G89.29 Other chronic pain (principal); M54.5 Low back pain; R18.8 Other ascites
CPT/HCPCS: 99283

== ENCOUNTER 2017-11-18 15:21 | Inpatient (IN) | payer MEDICAID, OTHER ==
[~2017-11-18] VITALS: Ht 170.2 cm; Wt 71.7 kg
[~2017-11-18 15:21] MED LIST changes: -CEP30L PO; +LACT10SO11 PO; +OXYC5TAB4 PO; -OXYC5TAB92 PO; +RIFA550T PO; -RIFA550T2 PO
[2017-11-18 15:40] VITALS: BP 123/70
--- NOTE | 2017-11-18 15:43 | NUR ---
PT TRANSFERRED [facility] TO ER BED 7.
--- NOTE | 2017-11-18 16:00 | NUR ---
PT. BIB BLS DUE TO GENERAL WEAKNESS AND BODY PAIN X 1 DAY. PT. IS AWAKE AND ABLE TO MAINTAIN A CONVERSATION. PT. HAS 8/10 PAIN IN ABD AND ALL OVER BODY. PT.STATES " MY WHOLE BODY HURTS AND MY STOMACH ALSO , I HAVE CIRRHOSIS AND RAN OUT OF MY LACTULOSE ABOUT 2-3 DAYS AGO". ABD IS ASCITIC , ROUND AND FIRM. RR EVEN AND UNLABORED. DENIES N/V/D. DENIES FEVERS. ER MD NOTIFIED. WILL CONTINUE TO MONITOR.
--- NOTE | 2017-11-18 17:05 | NUR ---
PT. RESTING COMFORTABLY IN BED, RR EVEN AND UNLABORED.WILL CONTINUE TO MONITOR.
[2017-11-18] MEDS ORDERED: NACL 0.9% 1,000 ML IV ONE (17:32)
[2017-11-18] MEDS ORDERED: LACTULOSE 20 GM/30 ML UDC PO ONE (17:35)
[2017-11-18] MEDS ORDERED: diphenhydrAMINE 50 MG/ML VIAL IVP ONE (17:35)
[2017-11-18] MEDS ORDERED: fentaNYL 0.05 MG/ML VIAL IVP ONE (17:35)
[2017-11-18] MEDS ORDERED: ONDANSETRON 4 MG/2 ML VIAL IVP ONE (17:35)
--- NOTE | 2017-11-18 18:05 | NUR ---
PT. UNABLE TO PROVIDE URINE SAMPLE AT THIS TIME.ER MD BUENO NOTIFIED.
--- NOTE | 2017-11-18 18:07 | NUR ---
LAB AT BEDSIDE AT THIS TIME.
[2017-11-18 18:43] LABS: ANION GAP 13.3 (8-16); CARBON DIOXIDE 25.8 mmol/L (21-32); CREATININE 0.7 mg/dL (0.7-1.3); MAGNESIUM 1.5 mg/dL (1.8-2.4); POTASSIUM 3.1 mmol/L (3.5-5.1)
[2017-11-18 18:49] LABS: ALBUMIN 2.9 g/dL (3.4-5.0); TOTAL BILIRUBIN 1.1 mg/dL (0.0-1.0)
[2017-11-18] MEDS ORDERED: NACL 0.9% 1,000 ML IV SCH (18:53)
[2017-11-18] MEDS ORDERED: DOCUSATE SODIUM 100 MG GELCAP PO PRN (18:55)
[2017-11-18] MEDS ORDERED: ACETAMINOPHEN 325 MG TAB PO PRN (18:55)
[2017-11-18] MEDS ORDERED: ONDANSETRON 4 MG/2 ML VIAL IM/IVP PRN (18:55)
[2017-11-18] MEDS ORDERED: HYDROcodone/APAP 5/325 MG 1 TAB TAB PO PRN (18:55)
--- NOTE | 2017-11-18 19:06 | NUR ---
MILTON FROM LAB CALLED TO REPORT CRITICAL OF LACTIC ACID: 2.2. ER MD BUENO NOTIFIED.
[2017-11-18 19:08] LABS: HEMOGLOBIN 9.7 g/dL (12.0-18.0); RED BLOOD CELL COUNT(AUTO) 4.11 MIL/uL (4.20-6.10)
[2017-11-18 19:09] LABS: EOSINOPHILS % (AUTO) 6.7 % (0.0-4.0); LYMPHOCYTES % (AUTO) 12.3 % (20.5-51.1); MEAN CORPUSCULAR HEMOGLOBIN 24 pg (27-31); MEAN CORPUSCULAR HGB CONC 30 g/dL (33-37); MEAN CORPUSCULAR VOLUME 77.9 fL (80-94); MONOCYTES % (AUTO) 15.2 % (1.7-9.3); NEUTROPHILS % (AUTO) 64.2 % (42.2-75.2); PLATELET COUNT (AUTO) 202 K/uL (140-450); RED CELL DISTRIBUTION WIDTH 25.9 % (11.6-13.7)
[2017-11-18 19:10] LABS: BASOPHILS # (AUTO) 0.1 K/uL (0.00-0.22); BASOPHILS % (AUTO) 1.6 % (0.0-2.0); EOSINOPHILS # (AUTO) 0.3 K/uL (0-0.4); LYMPHOCYTES # (AUTO) 0.5 K/uL (2.0-11.5); MONOCYTES # (AUTO) 0.6 K/uL (0.8-1.0); NEUTROPHILS # (AUTO) 2.5 K/uL (1.8-7.7)
--- NOTE | 2017-11-18 19:10 | NUR ---
Pt report given to BESSIE DANIELS . Transfer of care at this time.
[2017-11-18 19:12] LABS: ACETONE, SERUM NEGATIVE (NEGATIVE)
--- NOTE | 2017-11-18 19:28 | NUR ---
Dr. Bob evaluating patient at bedside.
--- NOTE | 2017-11-18 19:30 | NUR ---
PATIENT RESTING AT THIS TIME. NO SIGNS OF DISTRESS.
--- NOTE | 2017-11-18 19:50 | NUR ---
Patient will be admitted to care of DR. MARSH. Admited to TELE. Will go to room 121A. Belongings list completed. Report to MATTHEW LA.
[2017-11-18 20:00] VITALS: BP 117/57
--- NOTE | 2017-11-18 20:00 | NUR ---
ADMITTED THIS 57 YEAR OLD MALE FROM [facility] WITH CC OF GENERALIZED WEAKNESS, AMBULATED TO BED WITH ASSIST, ASSESSMENT DONE, MULTIPLE ABRASIONS NOTED TO RT ARM AND BRUISES TO LEFT ARM, AAOX4, VITAL SIGNS STABLE, COMPLAINING IF BACK AND ABDOMINAL PAIN, ABDOMEN DISTENDED DUE TO ASCITES, WILL MEDICATE PRN, ORIENTED TO ROOM AND CALL LIGHT, NPO EXCEPT MEDS AT THIS TIME, SAFETY MEASURES IN PLACE, CALL LIGHT WITHIN REACH.
[2017-11-18] MEDS ORDERED: oxyCODONE 5 MG TAB PO PRN (20:30)
[2017-11-18] MEDS ORDERED: POTASSIUM CHLORIDE 10 MEQ TABER PO SCH (21:00)
[2017-11-18 21:08] LABS: PROTHROMBIN TIME 13.3 secs (10.8-13.4)
[2017-11-18 21:32] LABS: CHOL/HDL RATIO 3.3 (1-4.5); FREE T4 (FREE THYROXINE) 1.06 ng/dL (0.76-1.46); PHOSPHORUS 2.6 mg/dL (2.5-4.9); THYROID STIMULATING HORMONE 0.51 uIU/mL (0.34-3.74)
[2017-11-18] MEDS: MORPHINE SULFATE 2 MG/ML SYR IVP PRN (22:14)
[2017-11-19] VITALS: BP 113/54
--- NOTE | 2017-11-19 | NUR ---
PT SLEEPING, EASILY AROUSABLE, VITAL SIGNS STABLE, DENIES PAIN, CONTINUE TO MONITOR CLOSELY.
[2017-11-19] MEDS ORDERED: MIRT15OD PO (01:03)
[2017-11-19] MEDS ORDERED: AMIT50TA27 PO (01:03)
[2017-11-19] MEDS ORDERED: DEXTROSE 50% 50 ML SYR IVP PRN (01:10)
[2017-11-19] MEDS ORDERED: MAGNESIUM OXIDE 400 MG TAB PO SCH ×2 (03:00→12:30)
[2017-11-19] MEDS: MORPHINE SULFATE 2 MG/ML SYR IVP PRN ×3 (03:49→20:01)
--- NOTE | 2017-11-19 03:50 | NUR ---
PT COMPLAINING OF PAIN, VITAL SIGNS TAKEN INCLUDING ORTHOSTATIC BP, MEDICATED PRN WITH MORPHINE IVP, MAG OXIDE PO GIVEN FOR MAG LEVEL OF 1.5, MONITORED CLOSELY.
[2017-11-19 04:00] VITALS: BP_SYST 118; BP_SYST 120; BP_SYST 124; BP_DIAS 52; BP_DIAS 63; BP_DIAS 69
[2017-11-19] MEDS: LORazepam 1 MG TAB PO SCH ×3 (05:26→20:04)
--- NOTE | 2017-11-19 05:40 | NUR ---
PT BACK FROM CT DEPT, BLOOD SUGAR CHECKED WITH 116 RESULT, DUE ATIVAN PO ADMINISTERED, MONITORED CLOSELY.
[2017-11-19 06:18] LABS: APPEARANCE,URINE TURBID (CLEAR); BILIRUBIN,URINE 1+ (NEGATIVE); BLOOD, URINE NEGATIVE (NEGATIVE); COLOR,URINE YELLOW (YELLOW); LEUKOCYTE ESTERASE ,URINE NEGATIVE (NEGATIVE); NITRITE, URINE POSITIVE (NEGATIVE); PH,URINE 5.5 (5.0-9.0); UGLUCOSE NEGATIVE (NEGATIVE)
[2017-11-19] MEDS: BLOOD GLUCOSE MONITORING 1 DEV DEV FS SCH ×4 (06:31→21:26)
[2017-11-19 06:45] LABS: BARBITURATE, URINE NEG. ng/ml (NEG <=200); BENZODIAZEPINE, URINE POS. ng/mL (NEG <=200); CANNABINOID, URINE NEG. ng/mL (NEG <=50); COCAINE, URINE NEG. ng/mL (NEG <=300)
[2017-11-19 06:46] LABS: ANION GAP 10.4 (8-16); CARBON DIOXIDE 27.2 mmol/L (21-32); CREATININE 0.7 mg/dL (0.7-1.3); POTASSIUM 3.6 mmol/L (3.5-5.1)
[2017-11-19 07:08] LABS: RBC,URINE NONE SEEN /HPF (0-5); URINE AMORPHOUS URATE 4+ /HPF (None Seen); WBC,URINE 0-5 (RARE) /HPF (0-5)
[2017-11-19 07:09] LABS: OPIATE, URINE NEG. ng/mL (NEG <=2000); PHENCYCLIDINE SCREEN,URINE NEG. ng/mL (NEG <=25)
--- NOTE | 2017-11-19 07:10 | NUR ---
PT ASLEEP, NO SIGNS OF DISTRESS, REPORT GIVEN TO BESSIE IRWIN FOR CONTINUITY OF CARE.
--- NOTE | 2017-11-19 07:11 | NUR ---
RECEIVED REPORT FROM DIRECTOR OF ONCOLOGY NURSE MATTHEW AT BEDSIDE FOR CONTINUITY OF CARE. PT IS AWAKE AND ORIENTED X4. INTRODUCED SELF AND UPDATED BOARD. NO SIGNS OF DISTRESS. NO SOB. NO COUGH .O2 SAT 99% ON RA. PT WITH ASCITES. DISTENDED ABD. PT STATED ABD PAIN TOLERABLE AT THIS TIME. CALL LIGHT WITHIN REACH. WILL CONTINUE TO MONITOR.
[2017-11-19 07:12] LABS: MAGNESIUM 1.5 mg/dL (1.8-2.4); PHOSPHORUS 2.6 mg/dL (2.5-4.9)
[2017-11-19 07:53] LABS: HEMATOCRIT 30.9 % (36-52); HEMOGLOBIN 9.6 g/dL (12.0-18.0); MEAN CORPUSCULAR HEMOGLOBIN 25 pg (27-31); MEAN CORPUSCULAR HGB CONC 31 g/dL (33-37); MEAN CORPUSCULAR VOLUME 78.6 fL (80-94); RED BLOOD CELL COUNT(AUTO) 3.93 MIL/uL (4.20-6.10)
[2017-11-19 07:54] LABS: LYMPHOCYTES % (AUTO) 11.3 % (20.5-51.1); MONOCYTES % (AUTO) 15.4 % (1.7-9.3); NEUTROPHILS % (AUTO) 62.5 % (42.2-75.2); PLATELET COUNT (AUTO) 176 K/uL (140-450); RED CELL DISTRIBUTION WIDTH 26.3 % (11.6-13.7)
[2017-11-19 07:55] LABS: BASOPHILS % (AUTO) 3.2 % (0.0-2.0); EOSINOPHILS % (AUTO) 7.6 % (0.0-4.0)
[2017-11-19 08:00] VITALS: BP 126/78
[2017-11-19 08:29] LABS: T4 (THYROXINE) 8.2 ug/dL (4.5-12.0)
[2017-11-19] MEDS: LACTULOSE 20 GM/30 ML UDC PO SCH ×3 (08:52→17:55)
[2017-11-19] MEDS: SPIRONOLACTONE 25 MG TAB PO SCH ×2 (08:53→17:56)
[2017-11-19] MEDS: metFORMIN 500 MG TAB PO SCH (08:53)
[2017-11-19] MEDS: POTASSIUM CHLORIDE 10 MEQ TABER PO SCH (08:53)
[2017-11-19] MEDS: RIFAXIMIN 550 MG TAB PO SCH ×2 (08:54→20:04)
[2017-11-19] MEDS: FUROSEMIDE 40 MG TAB PO SCH (08:54)
[2017-11-19] MEDS ORDERED: SPIRONOLACTONE 25 MG TAB PO SCH (09:00)
[2017-11-19] MEDS ORDERED: FUROSEMIDE 40 MG TAB PO SCH (09:00)
[2017-11-19] MEDS ORDERED: MIRTAZAPINE 15 MG PO SCH (09:00)
--- NOTE | 2017-11-19 10:38 | NUR ---
PATIENT HAS BEEN SCREENED AND CATEGORIZED HIGH NUTRITION RISK. PATIENT WILL BE SEEN WITHIN 1-2 DAYS OF ADMISSION. 11/19/17 11/20/[address]
--- NOTE | 2017-11-19 10:50 | NUR ---
PT ASLEEP WITH VISIBLE RESPIRATIONS. NO SIGNS OF DISTRESS. CALL LIGHT WITHIN REACH. BED IN LOW POSITION. WILL CONTINUE TO MONITOR.
[2017-11-19 12:00] VITALS: BP 112/69
[2017-11-19] MEDS: MIRTAZAPINE 15 MG TAB PO SCH (12:45)
[2017-11-19] MEDS: INSULIN LISPRO SLIDING SCALE 100 UNITS/ML VIAL SUBQ PRN (13:37)
--- NOTE | 2017-11-19 14:40 | NUR ---
PT WITH PHYSICAL THERAPY. NO COMPLAINTS AT THIS TIME. WILL CONTINUE TO MONITOR.
[2017-11-19] MEDS ORDERED: SIMETHICONE 80 MG TAB.CHEW PO SCH (15:00)
[2017-11-19 16:00] VITALS: BP 127/73
--- NOTE | 2017-11-19 19:30 | NUR ---
ENDORSED PT TO PROJECT MANAGEMENT ANALYST NURSE MATTHEW AT BEDSIDE FOR CONTINUITY OF CARE. PT IN STABLE CONDITION.
--- NOTE | 2017-11-19 19:32 | NUR ---
RECEIVED PT SLEEPING, EASILY AROUSABLE, VITAL SIGNS STABLE, ASKING WHEN CAN HE GET HIS NEXT MORPHINE, MADE AWARE OF TIME, ABDOMEN DISTENDED BUT SOFT, PLAN OF CARE DISCUSS, SAFETY MEASURES IN PLACE, CALL LIGHT WITHIN REACH.
[2017-11-19 20:00] VITALS: BP 123/74
[2017-11-19] MEDS: AMITRIPTYLINE 25 MG TAB PO SCH (20:04)
--- NOTE | 2017-11-19 22:49 | NUR ---
PT UNABLE TO GET IN TIME TO BEDSIDE COMMODE, HAD LARGE LOOSE BROWN BM, SPONGE BATH DONE, BED LINEN AND GOWN CHANGED, VOIDING FREELY PER URINAL WITH MAYRA COLORED URINE, MONITORED CLOSELY.
[2017-11-19] MEDS ORDERED: IBUPROFEN 600 MG TAB PO PRN (23:05)
--- NOTE | 2017-11-19 23:32 | NUR ---
TEMP-101.1, COOLING MEASURES INITIATED, MOTRIN PO GIVEN FOR FEVER, CONTINUE TO MONITOR CLOSELY.
[2017-11-20] VITALS (7 sets, daily range): BP systolic 98–147; BP diastolic 60–79
--- NOTE | 2017-11-20 04:30 | NUR ---
PT SLEEPING, VITAL SIGNS STABLE, AFEBRILE-98.4, NO SIGNS OF PAIN, MONITORED CLOSELY.
[2017-11-20] MEDS: LORazepam 1 MG TAB PO SCH ×3 (05:00→21:07)
--- NOTE | 2017-11-20 05:17 | NUR ---
PT SLEEPING, AROUSABLE BUT DROWSY, HOLD DUE ATIVAN PO FOR NOW, DRESSING CHANGE DONE TO RT ARM ABRASIONS, MONITORED CLOSELY.
--- NOTE | 2017-11-20 06:40 | NUR ---
PT HAD LOOSE BM WHILE SLEEPING, BED LINEN AND GOWN CHANGED, SIDE RAILS UP AND BED ALARM ON, MONITORED CLOSELY.
[2017-11-20 06:47] LABS: ANION GAP 12.8 (8-16); CARBON DIOXIDE 24.7 mmol/L (21-32); CREATININE 0.8 mg/dL (0.7-1.3); POTASSIUM 3.5 mmol/L (3.5-5.1)
[2017-11-20] MEDS: BLOOD GLUCOSE MONITORING 1 DEV DEV FS SCH ×4 (06:51→21:21)
[2017-11-20 06:57] LABS: MAGNESIUM 1.6 mg/dL (1.8-2.4); PHOSPHORUS 2.1 mg/dL (2.5-4.9)
--- NOTE | 2017-11-20 07:35 | NUR ---
RECEIVED REPORT FROM HUMAN RESOURCE INTERNSHIP. PT SLEEPING IN BED, AROUSABLE, VERBAL. A/O X3. SKIN DRY AND WARM TO TOUCH. LUNGS CLEAR ON AUSCULTATION. S1S2 HEARD. PERIPHERAL LINE ON RIGHT FOREARM 20 G INTACT. NO REDNESS, NO SWELLING AT SITE. ABDOMEN DISTENDED, NON-TENDER. ACTIVE BOWEL SOUND. SCABS NOTED ON RT. FOREARM,COVERED WITH DRESSING. INTACT DRESSING. BRUISES ON LEFT ARM. KEPT HOB ELEVATED. BED IN LOW POSITION LOCKED. WILL CONTINUE TO MONITOR. Addendum: 11/20/17 at 1950 by Loraine Monge RN ABRASION AND BRUISES ON RIGHT ARM COVERED WITH DRESSING. DRY SCABS ON LEFT ARM GETACHEW.
--- NOTE | 2017-11-20 07:35 | NUR ---
PT SLEEPING, NO SIGNS OF DISTRESS, REPORT GIVEN TO BESSIE HERNANDEZ FOR CONTINUITY OF CARE.
[2017-11-20 08:01] LABS: WHITE BLOOD COUNT (AUTO) 4.8 K/uL (4.8-10.8)
[2017-11-20 08:02] LABS: HEMATOCRIT 31.1 % (36-52); HEMOGLOBIN 9.5 g/dL (12.0-18.0); MEAN CORPUSCULAR HEMOGLOBIN 24 pg (27-31); MEAN CORPUSCULAR HGB CONC 31 g/dL (33-37); MEAN CORPUSCULAR VOLUME 78.5 fL (80-94); PLATELET COUNT (AUTO) 164 K/uL (140-450); RED BLOOD CELL COUNT(AUTO) 3.96 MIL/uL (4.20-6.10); RED CELL DISTRIBUTION WIDTH 26.5 % (11.6-13.7)
[2017-11-20] MEDS: metFORMIN 500 MG TAB PO SCH (09:32)
[2017-11-20] MEDS: TAMSULOSIN 0.4 MG CAP PO SCH (09:32)
[2017-11-20] MEDS: LACTULOSE 20 GM/30 ML UDC PO SCH ×3 (09:33→16:45)
[2017-11-20] MEDS: POTASSIUM CHLORIDE 10 MEQ TABER PO SCH (09:33)
[2017-11-20] MEDS: SPIRONOLACTONE 25 MG TAB PO SCH ×2 (09:33→16:45)
[2017-11-20] MEDS: FUROSEMIDE 40 MG TAB PO SCH (09:34)
[2017-11-20] MEDS: MIRTAZAPINE 15 MG TAB PO SCH (09:34)
[2017-11-20] MEDS: RIFAXIMIN 550 MG TAB PO SCH ×2 (09:35→21:06)
--- NOTE | 2017-11-20 09:40 | NUR ---
US TECH AT BEDSIDE FOR US ABDOMEN.
--- NOTE | 2017-11-20 09:40 | NUR ---
ADMINISTERED MEDICATIONS PER ORDER. TOLERATING WELL.
[2017-11-20 11:06] LABS: EOSINOPHILS % (MANUAL) 6 % (0-4); LYMPHOCYTES % (MANUAL) 10 % (20-46); MONOCYTES % (MANUAL) 15 % (5-12)
--- NOTE | 2017-11-20 12:32 | NUR ---
PT HAS BEEN SLEEPING SINCE MORNING. ATIVAN NOT ADMINISTERED.
[2017-11-20] MEDS: INSULIN LISPRO SLIDING SCALE 100 UNITS/ML VIAL SUBQ PRN ×3 (12:42→21:23)
--- NOTE | 2017-11-20 12:44 | NUR ---
NO CHANGES IN CONDITION. EATING LUNCH AT THIS TIME. WILL CONTINUE TO MONITOR.
--- NOTE | 2017-11-20 14:18 | NUR ---
11/20/17 RD INITIAL ASSESSMENT COMPLETED PLEASE REFER TO NUTRITION ASSESSMENT UNDER CARE ACTIVITY FOR ESTIMATED NUTRITIONAL NEEDS. 1. RECOMMEND CARDIAC, CCHO 60GM, FLUID RESTRICTION 1500 DIET TOLERATED 2. RECOMMEND MVI QD 3. FOLLOW-UP NUTRITION EDUCATION ON CIRRHOSIS, ASCITES, DM 4. RD TO FOLLOW-UP 2-3 DAYS, HIGH RISK JOB BEAN, RD
[2017-11-20] MEDS: MORPHINE SULFATE 2 MG/ML SYR IVP PRN ×2 (14:27→22:24)
--- NOTE | 2017-11-20 14:29 | NUR ---
NO CHANGE IN CONDITION. WILL CONTINUE TO MONITOR.
--- NOTE | 2017-11-20 15:49 | NUR ---
PHYSICAL THERAPY CO-SIGN The Physical Therapy Progress Notes documented by Signal Integrity Engineer have been reviewed. Reviewed/Co-Signed by: Bonita Warren PT Documentation Done by:VANDANA GARCIA ELECTRIC DISTRIBUTION ENGINEER POC REVIEWED W/ ELECTRIC DISTRIBUTION ENGINEER; PROGRESSING W/ FUNC MOB. Addendum: 11/20/17 at 1550 by Bonita Warren PT Amended: Links added.
--- NOTE | 2017-11-20 19:35 | NUR ---
RECEIVED FROM AM RN IN BED SITTING UP. VERBALIZES WELL. CALL LIGHT WITH IN REACH. NO SOB. DENIES PAIN AT THIS TIME. PT. ABLE TO WALK WELL TO RESTROOM WITHOUT ASSIST. ROM X 4. CARE PLANS FOR THE NIGHT DISCUSSED WITH HIM. DX. ASCITES. WITH PROTRUDING ABDOMEN. HX. LIVER CIRRHOSIS. ENCOURAGED TO CALL FOR ANY HELP HE MAY NEED OR IF IN PAIN.
--- NOTE | 2017-11-20 19:42 | NUR ---
ENDORSED TO PHOTOTYPESETTING EQUIPMENT MONITOR RN FOR CONTINUITY OF CARE. PT ON STABLE CONDITION.
[2017-11-20] MEDS: AMITRIPTYLINE 25 MG TAB PO SCH (21:06)
[2017-11-20] MEDS ORDERED: MAGNESIUM OXIDE 400 MG TAB PO SCH (22:25)
[2017-11-20] MEDS ORDERED: POTASSIUM CHLORIDE 10 MEQ TABER PO SCH (22:30)
--- NOTE | 2017-11-20 22:35 | NUR ---
PT. STILL AWAKE AND ALERT. REQUESTED FOR PAIN RELIEVER. OFFERED TABLET FORM. PT. REFUSED. "I JUST WANT MORPHINE IVP. RT IT TAKES MY ABDOMINAL PAIN AWAY" MEDIATED REQUESTED.
--- NOTE | 2017-11-21 | NUR ---
PT. AWAKE AT THIS TIME. WENT TO RESTROOM BY HIMSELF. INDEPENDENT. ROM X 4. NO SOB COMPLAINTS. DENIES PAIN AT THIS TIME.
[2017-11-21] MEDS ORDERED: POTASSIUM CHLORIDE 10 MEQ TABER PO SCH (00:10)
[2017-11-21 00:26] VITALS: BP 138/68
--- NOTE | 2017-11-21 02:20 | NUR ---
PT. SLEEPING. WAKES UP EASILY WHEN CALLED BY NAME .NO RESTLESSNESS. CALL LIGHT WITH IN REACH. TELEMETRY MONITORING.
[2017-11-21 05:08] VITALS: BP 137/70
[2017-11-21] MEDS: LORazepam 1 MG TAB PO SCH ×2 (05:14→12:05)
[2017-11-21] MEDS: BLOOD GLUCOSE MONITORING 1 DEV DEV FS SCH ×2 (05:23→11:30)
--- NOTE | 2017-11-21 05:47 | NUR ---
SLEEPING WELL THIS SHIFT. NO SOB. MEDICATED WITH PAIN RELIEVER MORPHINE IVP X 1 THIS SHIFT. TELEMETRY MONITORING. LAB. SUPERVISOR POULTRY PROCESSING IN HERE TO GET BLOOD SPECIMEN. TOLERATED WELL. CALL LIGHT WITH IN REACH.
[2017-11-21 06:25] LABS: CARBON DIOXIDE 27.1 mmol/L (21-32); CREATININE 0.9 mg/dL (0.7-1.3); POTASSIUM 4.1 mmol/L (3.5-5.1)
[2017-11-21 06:36] LABS: MAGNESIUM 1.5 mg/dL (1.8-2.4); PHOSPHORUS 1.9 mg/dL (2.5-4.9)
--- NOTE | 2017-11-21 07:20 | NUR ---
ENDORSED TO THE NEXT RN FOR CONTINUITY OF CARE. SLEEPING. WAKES UP EASILY WHEN CALLED BY NAME. TELEMETRY MONITORING.
--- NOTE | 2017-11-21 07:21 | NUR ---
REPORT RECEIVED FROM CARTRIDGE ASSEMBLING MACHINE ADJUSTER, PT SLEEPING QUIETLY, RESP EVEN UNLABORED, SKIN WARN DRY COLOR WNL, APPEARS IN NAD, PLAN OF CARE REVIEWED, NO IMMEDIATE NEEDS NOW, ALL SAFETY MEASURES IN PLACE, WILL CONTINUE TO MONITOR.
[2017-11-21] MEDS ORDERED: SODIUM PHOS / POTASSIUM PHOS 1 PKT PDR PO SCH (07:30)
[2017-11-21 08:00] VITALS: BP 136/79
[2017-11-21] MEDS ORDERED: RIFA550T PO (08:00)
[2017-11-21] MEDS ORDERED: LACT10SO11 PO (08:00)
[2017-11-21] MEDS: metFORMIN 500 MG TAB PO SCH (08:04)
[2017-11-21] MEDS: TAMSULOSIN 0.4 MG CAP PO SCH (08:04)
[2017-11-21] MEDS: POTASSIUM CHLORIDE 10 MEQ TABER PO SCH (08:04)
[2017-11-21] MEDS: SPIRONOLACTONE 25 MG TAB PO SCH (08:05)
[2017-11-21] MEDS: FUROSEMIDE 40 MG TAB PO SCH (08:05)
[2017-11-21] MEDS: LACTULOSE 20 GM/30 ML UDC PO SCH ×2 (08:05→12:05)
[2017-11-21] MEDS: RIFAXIMIN 550 MG TAB PO SCH (08:06)
[2017-11-21] MEDS: MIRTAZAPINE 15 MG TAB PO SCH (08:06)
[2017-11-21] MEDS: MORPHINE SULFATE 2 MG/ML SYR IVP PRN (08:13)
[2017-11-21 08:46] LABS: HEMOGLOBIN 9.9 g/dL (12.0-18.0); WHITE BLOOD COUNT (AUTO) 5.6 K/uL (4.8-10.8)
[2017-11-21 08:47] LABS: MEAN CORPUSCULAR HEMOGLOBIN 25 pg (27-31); MEAN CORPUSCULAR HGB CONC 31 g/dL (33-37); MEAN CORPUSCULAR VOLUME 19.9 fL (80-94); PLATELET COUNT (AUTO) 173 K/uL (140-450); RED CELL DISTRIBUTION WIDTH 16.5 % (11.6-13.7)
[2017-11-21 08:48] LABS: NEUTROPHILS % (AUTO) 74.1 % (42.2-75.2)
[2017-11-21 08:49] LABS: BASOPHILS % (AUTO) 1.1 % (0.0-2.0); EOSINOPHILS % (AUTO) 4.4 % (0.0-4.0); LYMPHOCYTES % (AUTO) 8.4 % (20.5-51.1)
--- NOTE | 2017-11-21 09:15 | NUR ---
Oil Laboratory Analyst Note: Per patient, he has been homeless for 1 year, prior to that he was incarcerated. He stated he is planning to go to one of his friend's home upon discharge. His friend's name is Reji, he lives in [place], [place]. Patient receives $624 monthly from pension. He does not have a pcp at this time. I emphasized to him the importance of following up with a physician post discharge. He verbalized understanding and stated he will follow up with a physician post discharge. He refused community resources. Shaker Screen Operator and/or Nursing Program Manager will follow up as needed.
--- NOTE | 2017-11-21 11:45 | NUR ---
PT REFUSES DISCHARGE, PT STATES "I CAN'T WALK", NEEDS WALKER PER PT, MESSI AND DR KESSLER NOTIFIED.
[2017-11-21 12:00] VITALS: BP 132/72
--- NOTE | 2017-11-21 12:05 | NUR ---
Market Research Associate Note: I faxed MD's order for fww, hnp, and face sheet to [facility] [employer], fax , office . Per Vidal from [employer], their driver medic will deliver fww to patient's bedside today between 2pm-3pm, patient's nurse Aidee made aware.
[2017-11-21] MEDS: INSULIN LISPRO SLIDING SCALE 100 UNITS/ML VIAL SUBQ PRN (12:40)
--- NOTE | 2017-11-21 12:43 | NUR ---
2 UNITS OF INSULIN GIVEN FOR BLOOD SUGAR 163, PT TIFFANY WELL, PT AWARE OF WALKER ARRIVAL BETWEEN 2 & 3, WILL DISCHARGE WHEN WALKER ARRIVES
--- NOTE | 2017-11-21 14:55 | NUR ---
DISCHARGE INSTRUCTION AND RX GIVEN AND EXPLAINED TO PT, PT VERBALIZED FULL UNDERSTANDING, PT UP AMBULATING AROUND THE ROOM WITH STEADY GAIT WITHOUT WALKER, WALKER AT BEDSDE, ALL BELONGINGS COLLECTED, IV DC'D, CATH TIP INTACT, BLEEDING CONTROLLED, HOMELESS WAIVER FORM EXPLAINED AND SIGNED BY PT, PT ESCORTED OUT TO FRONT LOBBY WALKING WITH WALKER WITH STEADY GAIT.
== END 2017-11-21 14:55 | disposition home or self-care (01) | DRG 279 ==
LOC: MED 15:21 → MTU 18:57
PROVIDERS: ADMIT General Practice; ATTEND General Practice
DX: K72.90 Hepatic failure, unspecified without coma (principal); E43 Unspecified severe protein-calorie malnutrition; D68.59 Other primary thrombophilia; E87.2 Acidosis; E11.51 Type 2 diabetes mellitus with diabetic peripheral angiopathy without gangrene; E11.65 Type 2 diabetes mellitus with hyperglycemia; K70.31 Alcoholic cirrhosis of liver with ascites; E11.69 Type 2 diabetes mellitus with other specified complication; E83.42 Hypomagnesemia; E86.0 Dehydration; E78.5 Hyperlipidemia, unspecified; T67.5XXA Heat exhaustion, unspecified, initial encounter; F10.20 Alcohol dependence, uncomplicated; G89.29 Other chronic pain; M54.9 Dorsalgia, unspecified; X58.XXXA Exposure to other specified factors, initial encounter; F17.210 Nicotine dependence, cigarettes, uncomplicated; E87.6 Hypokalemia; J98.11 Atelectasis; Z59.0 Homelessness; Z79.899 Other long term (current) drug therapy; Z79.84 Long term (current) use of oral hypoglycemic drugs; Y93.89 Activity, other specified; Y92.89 Other specified places as the place of occurrence of the external cause; Y99.8 Other external cause status; Z82.3 Family history of stroke; Z82.49 Family history of ischemic heart disease and other diseases of the circulatory system
CPT/HCPCS: 36415; 70450; 71045; 76705; 80048; 80053; 80305; 81001; 82009; 82140; 82150; 82948; 83036; 83605; 83690; 83735; 83880; 84100; 84134; 84436; 84439; 84443; 84479; 84484; 85025; 85610; 85730; 87040; 87081; 93005; 93880; 93925; 93970; 96361; 96374; 96375; 97110; 97116; 97140; 97161-GP; 97530; 99285; G0482; J0696; J1200; J1815; J2270; J2405; J3010; J7030; J7060; Q0092

== ENCOUNTER 2017-11-23 17:30 | Emergency (ER) | payer MEDICAID ==
[~2017-11-23] VITALS: Ht 170.2 cm; Wt 90.7 kg
[~2017-11-23 17:30] MED LIST changes: +AMIT50TA27 PO; +MIRT15OD PO
--- NOTE | 2017-11-23 17:33 | NUR ---
PT [facility] BLS TO ER BED 06
[2017-11-23 17:35] VITALS: BP 114/67
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
--- NOTE | 2017-11-23 17:43 | NUR ---
ATTEMPTED TO START AN IV ON PT AT THIS TIME, 3X IV BLOWN. SECOND NURSE TO TRY. Addendum: 11/23/17 at 183 [email or web address] Amendment undone in EDM - 11/23/17 at 1835 [email or web address] ATTEMPTED TO START AN IV ON PT AT THIS TIME, 3X IV BLOWN. SECOND NURSE TO TRY WHEN AVAILABLE. Addendum: 11/23/17 at 1835 by [email or web address] ATTEMPTED TO START AN IV ON PT AT THIS TIME, 3X IV BLOWN. SECOND NURSE TO TRY WHEN AVAILABLE.
--- NOTE | 2017-11-23 18:30 | NUR ---
THIRD NURSE ATTEMPTED TO START AN IV ON PT AT THIS TIME, UNSUCCESSFUL. ER MD AND CLIENT EXPERIENCE CONSULTANT NOTIFIED.
--- NOTE | 2017-11-23 18:34 | NUR ---
XRAY AT BEDSIDE AT THIS TIME.
--- NOTE | 2017-11-23 18:55 | NUR ---
PT RESTING ON [facility]OSPITAL [facility] AT THIS TIME W/ VSS, RR EVEN AND UNLABORED. SAFETY PRECAUTIONS IN PLACE, WILL CONTINUE TO MONITOR.
--- NOTE | 2017-11-23 19:30 | NUR ---
pt resting in bed. vitals stable
--- NOTE | 2017-11-23 19:40 | NUR ---
transfer of care at this time, report given to que starks
[2017-11-23 20:30] LABS: APPEARANCE,URINE SL CLOUDY (CLEAR); BILIRUBIN,URINE 1+ (NEGATIVE); BLOOD, URINE NEGATIVE (NEGATIVE); COLOR,URINE YELLOW (YELLOW); LEUKOCYTE ESTERASE ,URINE 2+ (NEGATIVE); NITRITE, URINE NEGATIVE (NEGATIVE); PH,URINE 5.5 (5.0-9.0); UGLUCOSE NEGATIVE (NEGATIVE)
[2017-11-23 20:41] LABS: BARBITURATE, URINE NEG. ng/ml (NEG <=200); BENZODIAZEPINE, URINE POS. ng/mL (NEG <=200); CANNABINOID, URINE NEG. ng/mL (NEG <=50); COCAINE, URINE NEG. ng/mL (NEG <=300); OPIATE, URINE NEG. ng/mL (NEG <=2000); PHENCYCLIDINE SCREEN,URINE NEG. ng/mL (NEG <=25)
--- NOTE | 2017-11-23 20:54 | NUR ---
PT SLEEP[ELIZABETH IN BED. VITALS STABLE
[2017-11-23] MEDS ORDERED: traMADol 50 MG TAB PO ONE (21:15)
[2017-11-23] MEDS ORDERED: LACTULOSE 20 GM/30 ML UDC PO ONE (21:15)
[2017-11-23 21:27] LABS: ACETONE, SERUM NEGATIVE (NEGATIVE)
[2017-11-23 21:36] LABS: ALBUMIN 2.9 g/dL (3.4-5.0); ANION GAP 13.7 (8-16); CARBON DIOXIDE 25.8 mmol/L (21-32); CREATININE 0.9 mg/dL (0.7-1.3); POTASSIUM 3.5 mmol/L (3.5-5.1); TOTAL BILIRUBIN 0.6 mg/dL (0.0-1.0)
[2017-11-23 21:41] LABS: MAGNESIUM 1.7 mg/dL (1.8-2.4); URIC ACID 4.8 mg/dL (2.6-7.2)
[2017-11-23 21:42] LABS: HEMATOCRIT 30.5 % (36-52); HEMOGLOBIN 9.6 g/dL (12.0-18.0); MEAN CORPUSCULAR HEMOGLOBIN 24 pg (27-31); MEAN CORPUSCULAR HGB CONC 31 g/dL (33-37); MEAN CORPUSCULAR VOLUME 77.6 fL (80-94); PLATELET COUNT (AUTO) 169 K/uL (140-450); RED BLOOD CELL COUNT(AUTO) 3.93 MIL/uL (4.20-6.10); WHITE BLOOD COUNT (AUTO) 3.6 K/uL (4.8-10.8)
--- NOTE | 2017-11-23 21:50 | NUR ---
PT SLEEPING IN BED. VITALS STABLE
--- NOTE | 2017-11-23 21:50 | NUR ---
Deedee salas in ED - 11/23/17 at 2239 by [email or web address] PT SITTING UP IN BED, FAMILY AT BEDSIDE. VITALS STABLE.
[2017-11-23 21:58] LABS: RBC,URINE 0-5 (RARE) /HPF (0-5); WBC,URINE 20-60 /HPF (0-5)
[2017-11-23 22:05] LABS: AMYLASE 38 U/L (25-115); LIPASE 129 U/L (73-393)
[2017-11-23 22:12] LABS: EOSINOPHILS % (MANUAL) 4 % (0-4); LYMPHOCYTES % (MANUAL) 9 % (20-46); MONOCYTES % (MANUAL) 17 % (5-12)
--- NOTE | 2017-11-24 01:10 | NUR ---
PT SLEEPING IN BED VITALS STABLE.
[2017-11-24 01:19] LABS: PROTHROMBIN TIME 11.6 secs (10.8-13.4)
[2017-11-24 03:09] VITALS: BP 141/83
--- NOTE | 2017-11-24 03:09 | NUR ---
Patient discharged with v/s stable. Written and verbal after care instructions given and explained. Patient verbalized understanding. Ambulatory with steady gait. All questions addressed prior to discharge. Advised to follow up with PMD. HOMELESS RECOURCE PACKET WAS GIVEN TO PT PRIOR TO DC.
--- NOTE | 2017-11-26 12:41 | NUR ---
ADDENDUM: URINE CULTURE VRE. PATIENT DISCHARGED WITH NO ANTIBIOTIC. REFERRED TO DR. BUENO. PATIENT HOMELESS. NO PATIENT CONTACT
== END 2017-11-24 03:09 | disposition home or self-care (01) ==
LOC: MED 17:30
DX: K70.9 Alcoholic liver disease, unspecified (principal); F10.10 Alcohol abuse, uncomplicated; E11.9 Type 2 diabetes mellitus without complications; I10 Essential (primary) hypertension; F17.210 Nicotine dependence, cigarettes, uncomplicated; Z79.899 Other long term (current) drug therapy; Y90.4 Blood alcohol level of 80-99 mg/100 ml
CPT/HCPCS: 36415; 71045; 80053; 80305; 81001; 82009; 82140; 82150; 83605; 83690; 83735; 83880; 84484; 84550; 85025; 85610; 85730; 87086; 87186; 93005; 99285; G0482